=== PATIENT | male | born 1960 | race Caucasian/White ===

== ENCOUNTER 2017-08-29 11:18 | Emergency (ER) | payer OTHER ==
[~2017-08-29] VITALS: Ht 172.7 cm; Wt 84.8 kg
[~2017-08-29 11:18] MED LIST: AUGMENTIN 875-1 EACH PO
[2017-08-29 11:23] VITALS: BP 149/82
--- NOTE | 2017-08-29 11:36 | ED GENERAL ADULT ---
History of Present Illness General Chief Complaint: Animal/Insect Bite Stated Complaint: RABIES SHOT Source: patient Exam Limitations: no limitations Vital Signs & Intake/Output Vital Signs & Intake/Output Vital Signs Date Time Temp Pulse Resp B/P B/P Pulse O2 O2 Flow FiO2 Mean Ox Delivery Rate 08/29 1123 98.0 65 20 149/82 98 Room Air Allergies Coded Allergies: Penicillins (Severe, HIVES 08/26/17) Reconcile Medications Amoxicillin/Potassium Clav (Augmentin 875-125 Tablet) 875 MG-125 MG TABLET 1 TAB PO BID DOG BITE Triage Note: PT HERE FOR RABIES SHOT, NUMBER 2. Triage Nurses Notes Reviewed? yes Onset: Abrupt Duration: day(s): Timing: recent history Injury Environment: home HPI: 57-year-old male comes into the emergency room for further evaluation of rabies booster vaccine. Patient was seen here the other day for a dog bite to his left hand. He is currently on oral antibiotics. Reports some mild discomfort to the hand but denies any redness or discharge fever chills. He comes in for his second rabies shot. The dog was not altered in that rabies. Denies any other system symptoms. (Anton Calderon) Past History Travel History Traveled to [place] past 21 day No Medical History Any Pertinent Medical History? 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 No (Anton Calderon) Review of Systems Review of Systems Constitutional: Reports: no symptoms. EENTM: Reports: no symptoms. Respiratory: Reports: no symptoms. Cardiovascular: Reports: no symptoms. GI: Reports: no symptoms. Genitourinary: Reports: no symptoms. Musculoskeletal: Reports: no symptoms. Skin: Reports: no symptoms. Neurological/Psychological: Reports: no symptoms. Hematologic/Endocrine: Reports: no symptoms. Immunologic/Allergic: Reports: no symptoms. All Other Systems: Reviewed and Negative (Anton Calderon) Physical Exam Physical Exam General Appearance: well developed/nourished, alert, awake Head: atraumatic Eyes: Bilateral: normal appearance. Ears, Nose, Throat: normal ENT inspection, hearing grossly normal Neck: normal inspection Respiratory: normal breath sounds, no respiratory distress Cardiovascular: regular rate/rhythm Extremities: 1 stitch to left hand, no erythema, no drainage, full range of motion Neurologic/Psych: awake, alert, oriented x 3 Skin: intact, normal color Core Measures ACS in differential dx? No CVA/TIA Diagnosis: No Sepsis Present: No Sepsis Focused Exam Completed? No (Anton Calderon) Progress Differential Diagnoses I considered the following diagnoses in my evaluation of the patient: Cellulitis, abscess, rabies, Plan of Care: 08/29/2017 12:35:17 PM Patient was given rabies vaccine booster. No evidence of infection. Return as previously instructed. Initial ED EKG: none (Anton Calderon) Departure Departure Disposition: HOME OR SELF CARE Condition: Stable Clinical Impression Primary Impression: Need for post exposure prophylaxis for rabies Secondary Impressions: Encounter for wound re-check Referrals: Hardeep Webb MD (PCP/Family) Additional Instructions: return as previosuly instructed. retrun if any concerns/worsening of symptoms. Departure Forms: Customer Survey General Discharge Information (Anton Calderon) PA/VETERANS ADVISER Co-Sign Statement Statement: ED Attending supervision documentation- [] I saw and evaluated the patient. I have also reviewed all the pertinent lab results and diagnostic results. I agree with the findings and the plan of care as documented in the PA's/VETERANS ADVISER's documentation. [x] I have reviewed the ED Record and agree with the PA's/VETERANS ADVISER's documentation. [] Additions or exceptions (if any) to the PAs/VETERANS ADVISER's note and plan are summarized below: [] (Wilber Cortes DO) Critical Care Note Critical Care Note Critical Care Time: non-applicable (Anton Calderon)
== END 2017-08-29 11:37 ==
LOC: ERH 11:18
DX: Z23 Encounter for immunization (principal)
CPT/HCPCS: 90471; 99281

== ENCOUNTER 2017-09-09 11:20 | Emergency (ER) | payer OTHER ==
[~2017-09-09] VITALS: Ht 172.7 cm; Wt 84.4 kg
--- NOTE | 2017-09-09 11:31 | ED ANIMAL BITE/WOUND CHECK ---
History of Present Illness General Chief Complaint: General Adult Stated Complaint: RABIES SHOT Source: patient Exam Limitations: no limitations Vital Signs & Intake/Output Vital Signs & Intake/Output Vital Signs Date Time Temp Pulse Resp B/P B/P Pulse O2 O2 Flow FiO2 Mean Ox Delivery Rate 09/09 1138 97 09/09 1137 96.2 57 18 133/80 98 Room Air F Allergies Coded Allergies: Penicillins (Severe, HIVES 09/02/17) Reconcile Medications Amoxicillin/Potassium Clav (Augmentin 875-125 Tablet) 875 MG-125 MG TABLET 1 TAB PO BID DOG BITE Triage Nurses Notes Reviewed? yes Onset: Abrupt Duration: better Timing: recent history Is Injury an Animal Bite? Yes Animal Type: dog Severity: mild Severity Numbers: 1 HPI: Patient is a 57-year-old male who presents emergency room with requests of rabies vaccine in which old records indicate that patient was bit to the left hand by a dog in which he was prescribed Augmentin sutures were placed patient has received his days 0 day 3 and day 7 vaccines and is requesting the 14 vaccines for rabies. Patient denies any adverse reactions to the vaccines or signs of infection and is otherwise without complaints. (Benson Messina) Past History Travel History Traveled to [place] past 21 day No Medical History Any Pertinent Medical History? 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 No (Benson Messina) Review of Systems Review of Systems Constitutional: Reports: no symptoms. EENTM: Reports: no symptoms. Respiratory: Reports: no symptoms. Cardiovascular: Reports: no symptoms. GI: Reports: no symptoms. Genitourinary: Reports: no symptoms. Musculoskeletal: Reports: no symptoms. Skin: Reports: see HPI. Neurological/Psychological: Reports: no symptoms. Hematologic/Endocrine: Reports: no symptoms. Immunologic/Allergic: Reports: no symptoms. All Other Systems: Reviewed and Negative (Benson Messina) Physical Exam Physical Exam General Appearance: no apparent distress, alert, comfortable Head: atraumatic Eyes: Bilateral: normal appearance. Ears, Nose, Throat: hearing grossly normal Neck: normal inspection Respiratory: no respiratory distress Peripheral Pulses: 2+ radial (L) Extremities: normal range of motion Skin: intact, normal color, warm/dry Comments: Left hand between first and second digit web space noted well-healing 2 centimeter laceration with no signs of erythema skin intact dermatomes intact (Benson Messina) Progress Differential Diagnosis: abscess, cellulitis, joint infection, tenosysnovitis Plan of Care: Current Medications Sig/Cheri Start time Last Medication Dose Stop Time Status Admin Rabies Vaccine 1 SYR ONCE ONE 09/09 1130 UNVr (Rabies (Vaccine) 09/09 1131 Inj (1ML)) Patient denies any adverse reaction to rabies vaccines and examination no signs of infection to the left hand laceration dog bite site. Patient was given final dose of rabies vaccine (Benson Messina) Departure Departure Disposition: HOME OR SELF CARE Condition: Stable Clinical Impression Primary Impression: Need for post exposure prophylaxis for rabies Referrals: Jon DUFFY,Hardeep (PCP/Family) Additional Instructions: As discussed if you develop a new concerning symptoms or symptoms worsen return to emergency room. Departure Forms: Customer Survey General Discharge Information (Benson Messina) PA/BUCKET HOOKER Co-Sign Statement Statement: ED Attending supervision documentation- [] I saw and evaluated the patient. I have also reviewed all the pertinent lab results and diagnostic results. I agree with the findings and the plan of care as documented in the PA's/BUCKET HOOKER's documentation. [X] I have reviewed the ED Record and agree with the PA's/BUCKET HOOKER's documentation. [] Additions or exceptions (if any) to the PAs/BUCKET HOOKER's note and plan are summarized below: [] (Ochoa DUFFY,Ney Sosa)
[2017-09-09 11:37] VITALS: BP 133/80
== END 2017-09-09 11:47 ==
LOC: ERH 11:20
DX: Z20.3 Contact with and (suspected) exposure to rabies (principal)
CPT/HCPCS: 90471; 99281